=== PATIENT | female | born 1995 | race American Indian/Alaskan Native ===

== ENCOUNTER 2016-11-24 12:39 | Outpatient (CLI) | payer MEDICAID | END 2016-11-24 14:56 | disposition home or self-care (01) | LOC: TRG 12:39 | PROVIDERS: ATTEND Obstetrics & Gynecology | DX: O48.0 Post-term pregnancy (principal); Z3A.41 41 weeks gestation of pregnancy | CPT/HCPCS: 59025 ==

== ENCOUNTER 2016-11-24 21:01 | Inpatient (IN) | payer MEDICAID ==
[2016-11-25] MEDS ORDERED: ZOFRAN ONE ×2 (00:34→17:36)
[2016-11-25] MEDS ORDERED: STADOL ONE (00:35)
[2016-11-25] MEDS ORDERED: SUBLIMAZE ONE (00:59)
[2016-11-25] MEDS: LACTATED RINGERS 1,000 ML IV SCH ×5 (01:00→11:34)
[2016-11-25] MEDS: SUBLIMAZE IV PRN ×3 (01:00→05:44)
--- NOTE | 2016-11-25 01:08 | History and Physical Report ---
History of Present Illness Date of examination: 11/24/16 Date of admission: 11/24/16 21:01 Chief complaint: I'm overdue History of present illness: Patient is a 21 year old who presents at 41 weeks gestation. Patient started care in the 1st trimester with MyOB,but transferred to [facility] at 32 weeks because she desired a Trial of Labor. Past History Past Medical History: no pertinent history Past Surgical History: section (x2) Family/Genetic History: none Social history: - Obstetrical History Expected Date of Delivery: 11/17/16 Actual Gestation: 41 Week(s) 1 Day(s) : 3 Para: 2 Number of Living Children: 2 Medications and Allergies Allergies Allergy/AdvReac Type Severity Reaction Status Date / Time No Known Allergies Allergy Unverified 11/24/16 14:10 Review of Systems All systems: negative Genitourinary: pelvic pain, contractions - Vital Signs Vital signs: Vital Signs Pulse BP 96 H 130/58 11/24/16 21:23 11/24/16 21:23 Temp Pulse Resp BP Pulse Ox 84 130/58 97 11/25/16 01:02 11/24/16 23:28 11/25/16 01:02 - Physical Exam Breasts: Cardiovascular: Regular rate, Normal S1, Normal S2 Lungs: Positive: Clear to auscultation, Normal air movement Abdomen: Positive: normal appearance, soft, normal bowel sounds. Negative: distention, tenderness Vulva: both: normal Vagina: Positive: normal moisture. Negative: discharge Cervix: Negative: lesion, discharge Uterus: Positive: normal size, normal contour Adnexa: both: normal Anus/Rectum: Positive: normal perianal skin, heme negative. Negative: rectal mass, hemorrhoids Extremities: Deep Tendon Reflex Grade: Normal +2 - Obstetrical Cervical Dilatation: 0 Cervical Effacement Percentage: 80 station: 0 Results All other labs normal. Assessment and Plan IUP at 41 weeks here for induction and TOLA2C. Patient understands risks and benefits. Patient understands that pitocin will not be used. Will insert vásquez catheter into cevix to promote dilation. AROM after removal of catheter. Anticipate successful .
[2016-11-25] MEDS ORDERED: STADOL IV PRN (01:28)
[2016-11-25] MEDS ORDERED: ePHEDrine SULFATE IV PRN ×2 (01:28→08:13)
[2016-11-25] MEDS ORDERED: BRETHINE IVP PRN (01:28)
[2016-11-25] MEDS ORDERED: ZOFRAN IV PRN (01:28)
[2016-11-25] MEDS ORDERED: MINERAL OIL PO PRN (01:28)
[2016-11-25] MEDS ORDERED: BRETHINE SUB-Q PRN (01:28)
[2016-11-25] MEDS ORDERED: XYLOCAINE 2% INFILTRATI ONE (01:28)
[2016-11-25] MEDS ORDERED: PITOCin/NS 20 UNIT/1000ML DRIP 20 UNITS/1,000 ML BAG IV SCH ×3 (02:00→19:12)
[2016-11-25 02:59] LABS: Hematocrit 30.2 % (30.3-42.9); Hemoglobin 9.9 gm/dl (10.1-14.3); Mean Corpuscular HGB Conc 33 % (30-34); Mean Corpuscular Volume 74 fl (79-97); Platelet Count 246 K/mm3 (140-440); Red Blood Count 4.06 M/mm3 (3.65-5.03); Red Cell Distribution Width 16.7 % (13.2-15.2); White Blood Count 10.2 K/mm3 (4.5-11.0)
[2016-11-25 03:03] LABS: Mean Corpuscular Hemoglobin 24 pg (28-32)
[2016-11-25] MEDS ORDERED: fentaNYL-BUPIV 2 MCG/ML-0.125% 200 MCG/100 ML BAG EPIDURAL ONE (07:43)
[2016-11-25] MEDS ORDERED: NARCAN 2 MG/2 ML IV PRN (08:13)
--- NOTE | 2016-11-25 08:13 | Anesthesia Consultation ---
Anesthesia Consult and Med Hx Date of service: 11/25/16 - Airway Anesthetic Teeth Evaluation: Good ROM Head & Neck: Adequate Mental/Hyoid Distance: Adequate Intubation Access Assessment: Probably Good - Pre-Operative Health Status ASA Pre-Surgery Classification: ASA2, Emergency Proposed Anesthetic Plan: Epidural, Spinal - Pulmonary Hx Asthma: Yes COPD: No Hx Pneumonia: No - Cardiovascular System Hx Hypertension: No - Central Nervous System Hx Seizures: No Hx Psychiatric Problems: No - Endocrine Hx Renal Disease: No Hx End Stage Renal Disease: No Hx Hypothyroidism: No Hx Hyperthyroidism: No - Hematic Hx Anemia: No Hx Sickle Cell Disease: No - Other Systems Hx Alcohol Use: No
[2016-11-25] MEDS ORDERED: XYLOCAINE MPF 2% ONE ×5 (08:32→17:15)
[2016-11-25] MEDS ORDERED: ePHEDrine SULFATE ONE (08:40)
[2016-11-25] MEDS ORDERED: fentaNYL-BUPIV 2 MCG/ML-0.125% 200 MCG/100 ML BAG EPIDURAL SCH (09:00)
[2016-11-25] MEDS ORDERED: PITOCin/NS 30 UNIT/500ML IV ONE ×2 (11:00→12:00)
[2016-11-25] MEDS ORDERED: PITOCin/NS 30 UNIT/500ML 30,000 MILLIUNITS/500 ML BAG IV ONE (11:39)
[2016-11-25] MEDS ORDERED: PITOCin/NS 20 UNIT/1000ML DRIP IV ONE (12:00)
[2016-11-25] MEDS ORDERED: BICITRA PO SCH (15:47)
[2016-11-25] MEDS ORDERED: PEPCID IV SCH (15:47)
[2016-11-25] MEDS ORDERED: ANCEF/STERILE WATER 2 GM/20 ML 2 GM/20 ML SYRINGE IV NR (16:00)
[2016-11-25] MEDS ORDERED: LACTATED RINGERS 1,000 ML IV SCH (16:00)
--- NOTE | 2016-11-25 16:10 | Progress Note ---
Assessment and Plan IUP at 41 weeks who has been in labor since last night. Hoang bulb fell out spontaneously early this morning around 4:30 am. AROM was completed at 5am and patient was 4-5cm/70. Patient has been on pitocin and jeni regularly but has only progressed to 6cm in the past 12 hours. Had discussion with patient and her mom that liklihood of vaginal delivery is low and that it would be best option to proceed with rcs. Patient agreed. Consent signed and placed on chart. Subjective - Subjective Date of service: 11/25/16 Interval history: Patient is a 21 year old who presents at 41 weeks gestation. Patient started care in the 1st trimester with MyOB,but transferred to [facility] at 32 weeks because she desired a Trial of Labor. Patient reports: movement normal, contractions Objective - Vital Signs Vital Signs: Vital Signs - 12hr 11/25/16 11/25/16 11/25/16 03:52 03:55 03:57 Temperature Pulse Rate 75 96 H 82 Respiratory Rate Blood Pressure O2 Sat by Pulse 93 91 95 Oximetry 11/25/16 11/25/16 11/25/16 04:00 04:02 04:07 Temperature Pulse Rate 80 76 67 Respiratory Rate Blood Pressure O2 Sat by Pulse 91 94 94 Oximetry 11/25/16 11/25/16 11/25/16 04:12 04:17 04:42 Temperature Pulse Rate 76 77 60 Respiratory Rate Blood Pressure O2 Sat by Pulse 95 96 94 Oximetry 11/25/16 11/25/16 11/25/16 04:47 04:52 04:54 Temperature Pulse Rate 67 71 70 Respiratory Rate Blood Pressure O2 Sat by Pulse 95 98 86 Oximetry 11/25/16 11/25/16 11/25/16 04:57 05:02 05:03 Temperature Pulse Rate 76 89 90 Respiratory Rate Blood Pressure 114/72 O2 Sat by Pulse 98 100 Oximetry 11/25/16 11/25/16 11/25/16 05:07 05:12 05:17 Temperature Pulse Rate 71 66 65 Respiratory Rate Blood Pressure O2 Sat by Pulse 96 96 98 Oximetry 11/25/16 11/25/16 11/25/16 05:22 05:27 05:32 Temperature Pulse Rate 78 86 86 Respiratory Rate Blood Pressure O2 Sat by Pulse 100 98 99 Oximetry 11/25/16 11/25/16 11/25/16 05:37 05:42 05:47 Temperature Pulse Rate 64 74 69 Respiratory Rate Blood Pressure O2 Sat by Pulse 97 99 96 Oximetry 11/25/16 11/25/16 11/25/16 05:52 05:57 06:00 Temperature Pulse Rate 74 74 67 Respiratory Rate Blood Pressure O2 Sat by Pulse 95 96 89 Oximetry 11/25/16 11/25/16 11/25/16 06:02 06:07 06:12 Temperature Pulse Rate 65 75 78 Respiratory Rate Blood Pressure O2 Sat by Pulse 95 98 96 Oximetry 11/25/16 11/25/16 11/25/16 06:14 06:17 06:22 Temperature Pulse Rate 64 74 69 Respiratory Rate Blood Pressure O2 Sat by Pulse 90 97 98 Oximetry 11/25/16 11/25/16 11/25/16 06:27 06:32 06:37 Temperature Pulse Rate 72 63 79 Respiratory Rate Blood Pressure O2 Sat by Pulse 96 96 95 Oximetry 11/25/16 11/25/16 11/25/16 06:40 06:42 06:47 Temperature Pulse Rate 60 71 73 Respiratory Rate Blood Pressure O2 Sat by Pulse 89 96 99 Oximetry 11/25/16 11/25/16 11/25/16 06:52 06:59 07:04 Temperature Pulse Rate 58 L 60 80 Respiratory Rate Blood Pressure O2 Sat by Pulse 98 96 97 Oximetry 11/25/16 11/25/16 11/25/16 07:16 07:17 07:22 Temperature Pulse Rate 67 78 Respiratory Rate Blood Pressure 115/58 O2 Sat by Pulse 93 97 Oximetry 11/25/16 11/25/16 11/25/16 07:27 07:32 07:37 Temperature Pulse Rate 77 84 82 Respiratory Rate Blood Pressure O2 Sat by Pulse 98 100 99 Oximetry 11/25/16 11/25/16 11/25/16 07:42 07:47 07:51 Temperature 98.6 F Pulse Rate 71 39 L 82 Respiratory 16 Rate Blood Pressure O2 Sat by Pulse 100 97 Oximetry 11/25/16 11/25/16 11/25/16 07:52 07:55 07:57 Temperature Pulse Rate 84 74 74 Respiratory Rate Blood Pressure 129/59 O2 Sat by Pulse 99 100 Oximetry 11/25/16 11/25/16 11/25/16 08:00 08:02 08:03 Temperature Pulse Rate 76 78 76 Respiratory Rate Blood Pressure 106/56 105/57 O2 Sat by Pulse 99 Oximetry 11/25/16 11/25/16 11/25/16 08:04 08:07 08:12 Temperature Pulse Rate 77 73 57 L Respiratory Rate Blood Pressure 102/60 116/58 O2 Sat by Pulse 97 98 Oximetry 11/25/16 11/25/16 11/25/16 08:16 08:17 08:18 Temperature Pulse Rate 63 68 74 Respiratory Rate Blood Pressure 117/74 O2 Sat by Pulse 97 81 L Oximetry 11/25/16 11/25/16 11/25/16 08:22 08:24 08:28 Temperature Pulse Rate 66 87 81 Respiratory Rate Blood Pressure 104/51 O2 Sat by Pulse 98 83 L 98 Oximetry 11/25/16 11/25/16 11/25/16 08:33 08:38 08:43 Temperature Pulse Rate 72 51 L 73 Respiratory Rate Blood Pressure 107/59 O2 Sat by Pulse 97 60 L 100 Oximetry 11/25/16 11/25/16 11/25/16 08:48 08:53 08:58 Temperature Pulse Rate 98 H 73 75 Respiratory Rate Blood Pressure 106/54 O2 Sat by Pulse 100 100 100 Oximetry 11/25/16 11/25/16 11/25/16 09:03 09:08 09:13 Temperature Pulse Rate 73 73 73 Respiratory Rate Blood Pressure 104/51 O2 Sat by Pulse 100 100 100 Oximetry 11/25/16 11/25/16 11/25/16 09:18 09:22 09:23 Temperature Pulse Rate 68 78 65 Respiratory Rate Blood Pressure 100/54 O2 Sat by Pulse 100 100 Oximetry 11/25/16 11/25/16 11/25/16 09:28 09:33 09:37 Temperature Pulse Rate 69 71 69 Respiratory Rate Blood Pressure 97/51 O2 Sat by Pulse 100 100 Oximetry 11/25/16 11/25/16 11/25/16 09:38 09:43 09:48 Temperature Pulse Rate 70 69 83 Respiratory Rate Blood Pressure O2 Sat by Pulse 100 100 100 Oximetry 11/25/16 11/25/16 11/25/16 09:52 09:53 09:58 Temperature Pulse Rate 88 69 68 Respiratory Rate Blood Pressure 99/57 O2 Sat by Pulse 100 100 Oximetry 11/25/16 11/25/16 11/25/16 10:03 10:08 10:13 Temperature Pulse Rate 75 72 78 Respiratory Rate Blood Pressure 100/52 O2 Sat by Pulse 100 100 100 Oximetry 11/25/16 11/25/16 11/25/16 10:18 10:23 10:28 Temperature Pulse Rate 72 76 69 Respiratory Rate Blood Pressure 110/59 O2 Sat by Pulse 100 100 100 Oximetry 11/25/16 11/25/16 11/25/16 10:30 10:33 10:37 Temperature 97.0 F L Pulse Rate 69 68 Respiratory Rate Blood Pressure 93/51 O2 Sat by Pulse 100 Oximetry 11/25/16 11/25/16 11/25/16 10:38 10:43 10:48 Temperature Pulse Rate 66 101 H 81 Respiratory Rate Blood Pressure O2 Sat by Pulse 100 96 99 Oximetry 11/25/16 11/25/16 11/25/16 10:53 10:58 11:01 Temperature Pulse Rate 72 66 71 Respiratory Rate Blood Pressure O2 Sat by Pulse 70 L 99 68 L Oximetry 11/25/16 11/25/16 11/25/16 11:03 11:08 11:13 Temperature Pulse Rate 74 94 H 87 Respiratory Rate Blood Pressure O2 Sat by Pulse 100 100 100 Oximetry 11/25/16 11/25/16 11/25/16 11:18 11:20 11:23 Temperature Pulse Rate 86 69 96 H Respiratory Rate Blood Pressure 87/49 O2 Sat by Pulse 99 97 Oximetry 11/25/16 11/25/16 11/25/16 11:24 11:28 11:29 Temperature Pulse Rate 77 74 74 Respiratory Rate Blood Pressure 76/40 100/50 O2 Sat by Pulse 98 Oximetry 11/25/16 11/25/16 11/25/16 11:33 11:38 11:43 Temperature Pulse Rate 68 71 72 Respiratory Rate Blood Pressure 98/54 O2 Sat by Pulse 100 100 100 Oximetry 11/25/16 11/25/16 11/25/16 11:48 11:53 11:54 Temperature Pulse Rate 70 76 75 Respiratory Rate Blood Pressure 97/49 O2 Sat by Pulse 100 100 Oximetry 11/25/16 11/25/16 11/25/16 11:58 12:03 12:08 Temperature Pulse Rate 71 78 82 Respiratory Rate Blood Pressure O2 Sat by Pulse 100 100 100 Oximetry 11/25/16 11/25/16 11/25/16 12:09 12:13 12:18 Temperature Pulse Rate 83 75 72 Respiratory Rate Blood Pressure 94/55 O2 Sat by Pulse 100 100 Oximetry 11/25/16 11/25/16 11/25/16 12:22 12:23 12:28 Temperature Pulse Rate 67 69 67 Respiratory Rate Blood Pressure 82/44 O2 Sat by Pulse 100 100 Oximetry 11/25/16 11/25/16 11/25/16 12:33 12:38 12:42 Temperature Pulse Rate 73 69 66 Respiratory Rate Blood Pressure 94/52 O2 Sat by Pulse 100 100 50 L Oximetry 11/25/16 11/25/16 11/25/16 12:43 12:48 12:53 Temperature Pulse Rate 124 H 86 70 Respiratory Rate Blood Pressure 95/54 O2 Sat by Pulse 99 100 100 Oximetry 11/25/16 11/25/16 11/25/16 12:58 13:03 13:07 Temperature Pulse Rate 67 75 78 Respiratory Rate Blood Pressure 88/50 O2 Sat by Pulse 100 100 Oximetry 11/25/16 11/25/16 11/25/16 13:08 13:13 13:18 Temperature Pulse Rate 69 77 65 Respiratory Rate Blood Pressure O2 Sat by Pulse 100 100 100 Oximetry 11/25/16 11/25/16 11/25/16 13:23 13:25 13:28 Temperature Pulse Rate 86 76 76 Respiratory Rate Blood Pressure 92/42 O2 Sat by Pulse 98 100 Oximetry 11/25/16 11/25/16 11/25/16 13:33 13:37 13:38 Temperature Pulse Rate 75 87 83 Respiratory Rate Blood Pressure 103/45 O2 Sat by Pulse 100 100 Oximetry 11/25/16 11/25/16 11/25/16 13:43 13:48 13:53 Temperature Pulse Rate 81 67 76 Respiratory Rate Blood Pressure O2 Sat by Pulse 100 100 100 Oximetry 11/25/16 11/25/16 11/25/16 13:54 13:58 14:03 Temperature Pulse Rate 77 74 76 Respiratory Rate Blood Pressure 98/51 O2 Sat by Pulse 100 100 Oximetry 11/25/16 11/25/16 11/25/16 14:07 14:08 14:13 Temperature Pulse Rate 68 77 76 Respiratory Rate Blood Pressure 97/55 O2 Sat by Pulse 100 100 Oximetry 11/25/16 11/25/16 11/25/16 14:16 14:18 14:22 Temperature Pulse Rate 83 80 75 Respiratory Rate Blood Pressure 82/44 O2 Sat by Pulse 87 100 Oximetry 11/25/16 11/25/16 11/25/16 14:23 14:28 14:33 Temperature Pulse Rate 66 79 71 Respiratory Rate Blood Pressure O2 Sat by Pulse 100 100 100 Oximetry 11/25/16 11/25/16 11/25/16 14:37 14:38 14:43 Temperature Pulse Rate 73 76 76 Respiratory Rate Blood Pressure 82/46 O2 Sat by Pulse 100 100 Oximetry 11/25/16 11/25/16 11/25/16 14:48 14:53 14:58 Temperature Pulse Rate 73 76 75 Respiratory Rate Blood Pressure 93/45 O2 Sat by Pulse 100 100 100 Oximetry 11/25/16 11/25/16 11/25/16 15:03 15:08 15:09 Temperature Pulse Rate 75 64 112 H Respiratory Rate Blood Pressure 83/48 O2 Sat by Pulse 100 81 L Oximetry 11/25/16 11/25/16 11/25/16 15:13 15:18 15:22 Temperature Pulse Rate 94 H 73 85 Respiratory Rate Blood Pressure 111/54 O2 Sat by Pulse 100 100 Oximetry 11/25/16 11/25/16 11/25/16 15:23 15:28 15:30 Temperature Pulse Rate 77 92 H 80 Respiratory Rate Blood Pressure O2 Sat by Pulse 100 100 68 L Oximetry 11/25/16 11/25/16 11/25/16 15:33 15:38 15:43 Temperature Pulse Rate 75 75 91 H Respiratory Rate Blood Pressure 89/50 O2 Sat by Pulse 100 100 100 Oximetry 11/25/16 11/25/16 15:48 15:52 Temperature Pulse Rate 84 73 Respiratory Rate Blood Pressure 88/53 O2 Sat by Pulse 100 Oximetry - Exam Cardiovascular: Regular rate Lungs: Clear to auscultation, Normal air movement Abdomen: Present: normal appearance, soft. Absent: distention, tenderness Uterus: Present: normal FHR: auscultation normal Cervical Dilatation: 6 Cervical Effacement Percentage: 70 station: -2 Uterine Contraction Pattern: Regular Uterine Contraction Intensity: Moderate Extremities: normal Deep Tendon Reflex Grade: Normal +2 - Labs Labs: Abnormal Labs 11/24/16 22:00 Hgb 9.9 L Hct 30.2 L MCV 74 L MCH 24 L RDW 16.7 H Laboratory Results - last 24 hr 11/24/16 11/24/16 11/24/16 22:00 22:00 22:00 WBC 10.2 RBC 4.06 Hgb 9.9 L Hct 30.2 L MCV 74 L MCH 24 L MCHC 33 RDW 16.7 H Plt Count 246 RPR Nonreactive Blood Type A POSITIVE Antibody Screen TNR PARESH Antibody Screen Negative
[2016-11-25] MEDS: REGLAN IV SCH ×2 (16:15→16:19)
[2016-11-25] MEDS ORDERED: NACL 0.9% IR ONE (16:50)
[2016-11-25] MEDS ORDERED: WATER FOR IRRIG STERILE IR ONE (16:50)
[2016-11-25] MEDS ORDERED: DILAUDID ONE (17:23)
[2016-11-25] MEDS ORDERED: MORPHINE ONE ×2 (17:25)
[2016-11-25] MEDS ORDERED: NEO SYNEPHRINE/NS Syringe(OR USE) IV ONE (17:30)
--- NOTE | 2016-11-25 17:59 | Procedure Note ---
OB Delivery Note - Delivery Date of Delivery: 11/25/16 Surgeon: ARMANDO GORDON Estimated blood loss: other (700) - Section Preop diagnosis: repeat , arrest of dilation Postop diagnosis: same section procedure: repeat low transverse Disposition: PACU Complications: none Narrative: see op report - Infant A at 1 minute: 8 at 5 minutes: 9 Infant Gender: Female (6 pounds 15 ounces)
[2016-11-25] MEDS ORDERED: TORADOL IV PRN (18:09)
[2016-11-25] MEDS ORDERED: DILAUDID IV PRN (18:09)
--- NOTE | 2016-11-25 18:09 | Anesthesia Day of Surgery ---
Anesthesia Day of Surgery - Day of Surgery Patient Examined: Yes Patient H&P Reviewed: Yes Patient is NPO: Yes
[2016-11-25] MEDS ORDERED: NARCAN 0.4 MG/1 ML IV PRN (19:12)
[2016-11-25] MEDS ORDERED: MYLICON PO PRN (19:12)
[2016-11-25] MEDS ORDERED: MORPHINE IV PRN (19:12)
[2016-11-25] MEDS ORDERED: SODIUM CHLORIDE FLUSH SYRINGE 10 ML IV NR (19:12)
[2016-11-25] MEDS ORDERED: D5LR 1,000 ML IV SCH (19:12)
[2016-11-25] MEDS ORDERED: TUCKS PAD TP PRN (19:12)
[2016-11-25] MEDS ORDERED: LANSINOH TP PRN (19:12)
[2016-11-25] MEDS ORDERED: MILK OF MAGNESIA PO PRN (22:00)
[2016-11-25] MEDS: ANCEF/NS 1 GM/50 ML 1 GM/50 ML BAG IV SCH (23:39)
[2016-11-26] MEDS ORDERED: BENADRYL IV ONE (00:10)
[2016-11-26 06:15] LABS: Hematocrit 27.4 % (30.3-42.9); Hemoglobin 8.8 gm/dl (10.1-14.3)
[2016-11-26] MEDS: ANCEF/NS 1 GM/50 ML 1 GM/50 ML BAG IV SCH ×2 (08:18→15:32)
[2016-11-26] MEDS: PRENATAL VITAMIN PO SCH (08:22)
[2016-11-26] MEDS: PERCOCET 5/325 PO PRN ×3 (08:23→23:11)
[2016-11-26] MEDS: MOTRIN PO PRN ×2 (15:02→22:40)
--- NOTE | 2016-11-26 17:12 | Operative Report ---
Operative Report Operative Report: The operative report for patient Aston Medrano Date of service 11/25/2016 Preoperative diagnosis: Intrauterine at 41 weeks 2. Previous 2 3. Failed Postoperative diagnosis: Same Procedure: Repeat low transverse section Surgeon: Dr. Ana Hoyt EBL: 700 Urine output: 100 IV fluids: 1200 mL Findings: Viable female in the vertex occiput posterior position. Weight 6 lbs. 15 oz. 3576 g Apgars 9 and 9]. Otherwise normal pelvic anatomy Specimens: None Complications: None Procedure: The patient was admitted to the OR with IV running and in place. She was properly identified as herself. Her spinal had been placed in the room and she was already under the effects of anesthesia upon entry into the OR. She was placed in the dorsal supine position with a leftward tilt. A Hoang catheter was already in place. She was then prepped and draped in the normal sterile fashion. An Allis test was used to confirm adequate anesthesia. Once confirmed, the incision was made with the scalpel and carried to the underlying fascia using the scalpel and the Bovie. The fascia was incised in the midline and incision was extended bilaterally using the curved Washington scissors. The fascia was then dissected from the underlying rectus muscles in a series of sharp and blunt dissection using the Washington scissors. Muscles were in the in the midline sharply using Metzenbaum scissors and the peritoneum was entered into bluntly using the surgeon's fingers. A bladder blade was then placed into the incision to protect the bladder. Following this the bladder flap was created. Hysterotomy incision was then made in the scalpel. Upon uterine entry, the amniotic sac was ruptured for clear fluid. The infant was then delivered in the occiput [posterior] position. His mouth and nose were suctioned on the field. The cord was clamped and cut and he was handed to the waiting NICU personnel. The uterus was then exteriorized and cleared of all clots and debris. The hysterotomy incision was then closed in a running locked fashion using 0 Vicryl. The abdomen was then copiously irrigated with warm normal saline. Following this the uterus was replaced into the abdominal cavity. At this point the muscles were reapproximated in the midline using individual sutures of 0 Vicryl. Following this the fascia was closed in a running fashion using 0 Vicryl. Tissue was then copiously irrigated. Skin was closed with yi. The sponge lap needle and instrument counts were correct 2. The patient tolerated the procedure well. She was taken to recovery in stable condition.
--- NOTE | 2016-11-26 17:13 | Progress Note ---
Subjective - Subjective Date of service: 11/26/16 Interval history: Patient is a 21 year old who presents at 41 weeks gestation. Patient started care in the 1st trimester with MyOB,but transferred to [facility] at 32 weeks because she desired a Trial of Labor. Patient reports: appetite normal, voiding normally, pain well controlled, ambulating normally : doing well Objective - Vital Signs Latest vital signs: Vital Signs Temp Pulse Resp BP BP Pulse Ox 11/26/16 15:03 20 11/26/16 15:02 20 11/26/16 12:10 97.7 F 68 18 126/72 11/26/16 08:23 20 11/26/16 08:10 98.4 F 64 17 106/68 11/26/16 05:38 18 11/26/16 05:30 16 11/26/16 04:30 99.5 F 95 H 18 105/58 11/26/16 03:02 98.7 F 18 11/26/16 02:00 18 11/26/16 00:03 97.6 F 82 18 112/58 11/26/16 00:00 18 11/25/16 22:20 18 11/25/16 22:00 18 11/25/16 19:39 97.8 F 82 18 97/52 11/25/16 19:20 18 11/25/16 18:01 98.5 F 91 H 12 106/50 100 Intake and Output 11/26/16 11/26/16 11/26/16 06:59 14:59 22:59 Intake Total 1250 410 Output Total 3300 Balance -2049 410 Intake: IV 50 50 ANCEF/NS 1 GM/50 ML 1 gm 50 50 In 50 ml @ 100 mls/hr IV Q8H [facility] Rx#:[id number] Oral 360 Intake, Free Water 1200 Output: Urine 3300 Indwelling Catheter 3300 Other: Total, Intake Amount 240 Total, Output Amount 800 - Exam Breasts: Present: deferred Cardiovascular: Present: Regular rate, Normal S1, Normal S2 Lungs: Present: Clear to auscultation, Normal air movement Abdomen: Present: normal appearance, soft, normal bowel sounds Vulva: both: normal Uterus: Present: normal, firm Extremities: Present: normal - Labs Labs: Abnormal lab results 11/26/16 Range/Units 05:57 Hgb 8.8 L (10.1-14.3) gm/dl Hct 27.4 L (30.3-42.9) %
[2016-11-27] MEDS: PERCOCET 5/325 PO PRN (04:04)
[2016-11-27] MEDS: MOTRIN PO PRN ×3 (05:32→21:01)
[2016-11-27] MEDS ORDERED: BOOSTRIX IM ONE (06:00)
[2016-11-27] MEDS: PRENATAL VITAMIN PO SCH (11:30)
--- NOTE | 2016-11-27 16:04 | Progress Note ---
Subjective Date of service: 11/27/16 Interval history: 2nd POD after Patient is in the bed, comfortable. Pain is well controlled with pain meds. Ambulated well. No residual neurological deficit. No anesthesia complications Objective - Constitutional Vitals: Vital Signs - 12hr 11/27/16 11/27/16 05:32 08:42 Temperature 97.6 F Pulse Rate 64 Respiratory 18 19 Rate Blood Pressure 101/56 O2 Sat by Pulse 100 Oximetry - Labs CBC & Chem 7: 11/26/16 05:57
--- NOTE | 2016-11-27 23:19 | Progress Note ---
Assessment and Plan POd 2s/p rltcs. Doing well. Patient planning to go home on tomorrow. Subjective - Subjective Date of service: 11/27/16 Interval history: Patient is a 21 year old who presents at 41 weeks gestation. Patient started care in the 1st trimester with MyOB,but transferred to [facility] at 32 weeks because she desired a Trial of Labor. Patient reports: appetite normal, voiding normally, pain well controlled, ambulating normally [place]: doing well Objective - Vital Signs Latest vital signs: Vital Signs Temp Pulse Resp BP BP Pulse Ox 11/27/16 21:01 20 11/27/16 16:39 97.7 F 78 16 111/71 98 11/27/16 08:42 97.6 F 64 19 101/56 100 11/27/16 05:32 18 11/27/16 04:04 18 11/27/16 00:30 98.6 F 71 16 101/77 11/26/16 23:11 18 Intake and Output 11/27/16 11/27/16 11/28/16 14:59 22:59 06:59 Intake Total 360 Balance 360 Intake: Intake, Free Water 360 Other: # Voids Void 1 - Exam Breasts: Present: normal Cardiovascular: Present: Regular rate, Normal S1, Normal S2 Lungs: Present: Clear to auscultation, Normal air movement Abdomen: Present: normal appearance, soft, normal bowel sounds Uterus: Present: normal, firm Extremities: Present: normal Deep Tendon Reflex Grade: Normal +2
--- NOTE | 2016-11-27 23:21 | Discharge Summary ---
Providers - Providers Date of Admission: 11/24/16 21:01 Date of discharge: 11/28/16 Attending physician: ARMANDO GORDON Primary care physician: ARMANDO GORDON Hospitalization Reason for admission: induction of labor Delivery: Procedure: repeat low transverse Incision: normal, dry, intact Discharge diagnosis: IUP at term delivered baby: female Condition at discharge: Good Disposition: DC- TO HOME OR SELFCARE Plan - Discharge Medications Prescriptions: Docusate Sodium [Colace] 100 mg PO BID PRN #60 capsule PRN Reason: Constipation Ferrous Sulfate [Feosol 325 MG tab] 325 mg PO BID #60 tablet Ibuprofen [Motrin] 800 mg PO Q8HR PRN #50 tablet PRN Reason: Pain Oxycodone HCl/Acetaminophen [Percocet 7.5/325 mg] 1 each PO Q6HR PRN #50 tablet PRN Reason: Pain - Provider Discharge Summary Activity: routine, no sex for 6 weeks, no heavy lifting 4 weeks, no strenuous exercise Diet: routine Instructions: routine Additional instructions: [] Smoking cessation referral if applicable(refer to patient education folder for contact #) [] Refer to [facility]'s [facility] Booklet Call your doctor immediately for: * Fever > 100.5 * Heavy vaginal bleeding ( >1 pad per hour) * Severe persistent headache * Shortness of breath * Reddened, hot, painful area to leg or breast * Drainage or odor from incision. * Keep incision clean and dry at all times and follow doctor's instructions regarding bathing/showering - Follow up plan Follow up: ARMANDO GORDON MD [Primary Care Provider] - 7 Days Forms: [facility] Discharge Summary, Discharge Signature Page
[2016-11-28] MEDS: PERCOCET 5/325 PO PRN (00:59)
[2016-11-28] MEDS: MOTRIN PO PRN ×3 (06:02→18:15)
[2016-11-28] MEDS: PRENATAL VITAMIN PO SCH (11:30)
[2016-11-28 18:37] VITALS: BP 108/58
== END 2016-11-28 19:34 | disposition home or self-care (01) | DRG 766 ==
LOC: LD 21:01 → OB 11-25 19:09
PROVIDERS: ADMIT Obstetrics & Gynecology; ATTEND Obstetrics & Gynecology
PROC: 3E0234Z Introduction of Serum, Toxoid and Vaccine into Muscle, Percutaneous Approach (ICD-10-PCS; 2016-11-25)
PROC: 10D00Z1 Extraction of Products of Conception, Low, Open Approach (ICD-10-PCS; principal; 2016-11-26)
PROC: 10907ZC Drainage of Amniotic Fluid, Therapeutic from Products of Conception, Via Natural or Artificial Opening (ICD-10-PCS; 2016-11-26)
DX: O34.211 Maternal care for low transverse scar from previous cesarean delivery (principal); O99.52 Diseases of the respiratory system complicating childbirth; J45.909 Unspecified asthma, uncomplicated; Z3A.41 41 weeks gestation of pregnancy; Z37.0 Single live birth; Z23 Encounter for immunization; O62.1 Secondary uterine inertia; O48.0 Post-term pregnancy
CPT/HCPCS: 36415; 85014; 85018; 85027; 86592; 86850; 86900; 86901; 90471; 90715; 99211; A6250; G0463; J0595; J0690; J1170; J1200; J1885; J2270; J2370; J2405; J2590; J2765; J3010; J7120; J7121

== ENCOUNTER 2018-11-16 11:54 | Inpatient (IN) | payer MEDICAID ==
[2018-11-16] MEDS ORDERED: METOCLOPRAMIDE 10 MG/2 ML INJ IV ONE (12:37)
[2018-11-16] MEDS ORDERED: BICITRA ORAL LIQD 30ML PO ONE (12:37)
[2018-11-16] MEDS ORDERED: FAMOTIDINE 20 MG/2 ML INJ IV ONE ×2 (12:37→15:07)
[2018-11-16] MEDS ORDERED: ceFAZolin/Water 2 GM/20 ML 2 GM/20 ML SYRINGE IV NR (13:00)
[2018-11-16] MEDS ORDERED: OXYTOCIN 20 UNIT/1000ML DRIP 20 UNITS/1,000 ML BAG IV SCH ×2 (13:00→18:00)
[2018-11-16] MEDS ORDERED: LACTATED RINGERS 1,000 ML IV SCH (13:00)
[2018-11-16] MEDS ORDERED: D5W/LACTATED RINGERS 1,000 ML IV SCH ×2 (13:00→23:00)
[2018-11-16 13:39] LABS: Basophils # (Auto) 0.1 K/mm3 (0.0-0.1); Basophils % (Auto) 0.7 % (0.0-1.8); Eosinophils # (Auto) 0.2 K/mm3 (0.0-0.4); Eosinophils % (Auto) 2.4 % (0.0-4.3); Hemoglobin 11.8 gm/dl (10.1-14.3); Lymphocytes # (Auto) 1.4 K/mm3 (1.2-5.4); Lymphocytes % (Auto) 15.5 % (13.4-35.0); Mean Corpuscular HGB Conc 33 % (30-34); Mean Corpuscular Volume 82 fl (79-97); Monocytes # (Auto) 0.4 K/mm3 (0.0-0.8); Monocytes % (Auto) 4.8 % (0.0-7.3); Platelet Count 210 K/mm3 (140-440); Red Blood Count 4.41 M/mm3 (3.65-5.03); Red Cell Distribution Width 15.8 % (13.2-15.2)
[2018-11-16] MEDS ORDERED: BICITRA ORAL LIQD 30ML ONE (15:07)
[2018-11-16] MEDS ORDERED: METOCLOPRAMIDE 10 MG/2 ML INJ ONE (15:07)
[2018-11-16] MEDS ORDERED: ONDANSETRON 4 MG/2 ML INJ IV ONE (15:12)
[2018-11-16] MEDS ORDERED: diphenhydrAMINE 50 MG/ML VIAL IV PRN (15:21)
[2018-11-16] MEDS ORDERED: ONDANSETRON 4 MG/2 ML INJ IV PRN (15:21)
[2018-11-16] MEDS ORDERED: HYDROmorphone 1 MG/1 ML INJ IV PRN ×2 (15:21)
--- NOTE | 2018-11-16 15:25 | Anesthesia Consultation ---
Anesthesia Consult and Med Hx Date of service: 11/16/18 - Airway Anesthetic Teeth Evaluation: Good ROM Head & Neck: Adequate Mental/Hyoid Distance: Adequate Mallampati Class: Class II Intubation Access Assessment: Probably Good - Pulmonary Exam CTA: Yes - Cardiac Exam Cardiac Exam: RRR - Pre-Operative Health Status ASA Pre-Surgery Classification: ASA2 Proposed Anesthetic Plan: Spinal - Pulmonary Hx Smoking: No Hx Asthma: Yes (Albuterol PRN, last attack 1 year ago) Hx Respiratory Symptoms: No SOB: No COPD: No Home Oxygen Therapy: No Hx Pneumonia: No Hx Sleep Apnea: No - Cardiovascular System Hx Hypertension: No Hx Coronary Artery Disease: No Hx Heart Attack/AMI: No Hx Angina: No Hx Percutaneous Transluminal Coronary Angioplasty (PTCA): No Hx Cardia Arrhythmia: No Hx Pacemaker: No Hx Internal Defibrillator: No Hx Valvular Heart Disease: No Hx Heart Murmur: No Hx Peripheral Vascular Disease: No - Central Nervous System Hx Neuromuscular Disorder: No Hx Seizures: No CVA: No Hx Back Pain: No Hx Psychiatric Problems: No - Gastrointestinal Hx Ulcer: No Hx Gastroesophageal Reflux Disease: No - Endocrine Hx Renal Disease: No Hx End Stage Renal Disease: No Hx Cirrhosis: No Hx Liver Disease: No Hx Insulin Dependent Diabetes: No Hx Non-Insulin Dependent Diabetes: No Hx Thyroid Disease: No Hx Hypothyroidism: No Hx Hyperthyroidism: No - Hematic Hx Anemia: Yes (Prescribed iron) Hx Sickle Cell Disease: No - Other Systems Hx Alcohol Use: No Hx Substance Use: No Hx Cancer: No Hx Obesity: No
--- NOTE | 2018-11-16 15:28 | Anesthesia Day of Surgery ---
Anesthesia Day of Surgery - Day of Surgery Patient Examined: Yes Patient H&P Reviewed: Yes Patient is NPO: Yes (last meal 12 noon. surgery scheduled for 8pm) Beta Blockers: No Cardiac Clearance: No Pulmonary Clearance: No [place]'s Test: N/A
[2018-11-16 17:08] LABS: Hepatitis C Virus Antibody Non-Reactive (NonReactive)
--- NOTE | 2018-11-16 17:16 | History and Physical Report ---
History of Present Illness Date of examination: 11/16/18 Date of admission: 11/16/18 15:26 Chief complaint: contractions History of present illness: 23y/o @ 39+4 weeks presents with irregular uterine contractions. She denies leakage of fluid or vaginal bleeding. course is complicated by insufficient care. The patient has had 3 prior deliveries. records are unavailable. Past History Past Medical History: asthma, other ( depression) Past Surgical History: section Social history: - Obstetrical History Expected Date of Delivery: 11/19/18 Actual Gestation: 39 Week(s) 4 Day(s) : 4 Para: 3 Hx # Term Pregnancies: 3 Number of Pregnancies: 0 Spontaneous Abortions: 0 Induced : 0 Number of Living Children: 3 Medications and Allergies Allergies Allergy/AdvReac Type Severity Reaction Status Date / Time No Known Allergies Allergy Verified 11/16/18 11:59 Home Medications Medication Instructions Recorded Confirmed Last Taken Type Docusate Sodium [Colace] 100 mg PO BID PRN #60 capsule 11/26/16 Unknown Rx Ferrous Sulfate [Feosol 325 MG tab] 325 mg PO BID #60 tablet 11/26/16 Unknown Rx Ibuprofen [Motrin] 800 mg PO Q8HR PRN #50 tablet 11/26/16 Unknown Rx Oxycodone HCl/Acetaminophen 1 each PO Q6HR PRN #50 tablet 11/26/16 Unknown Rx [Percocet 7.5/325 mg] Active Meds: Active Medications Diphenhydramine HCl (Benadryl) 12.5 mg IV Q2H PRN PRN Reason: Itching Hydromorphone HCl (Dilaudid) 0.5 mg IV Q5M PRN PRN Reason: Breakthrough Pain Stop: 11/16/18 23:59 Hydromorphone HCl (Dilaudid) 0.5 mg IV Q4H PRN PRN Reason: breakthrough pain > 7/10 Oxytocin/Sodium Chloride (Pitocin/Ns 20 Unit/1000ml Drip) 20 units in 1,000 mls @ 0 mls/hr IV TITR SAVANAH Lactated Ringer's (Lactated Ringers) 1,000 mls @ 2,250 mls/hr IV PREOP SAVANAH Stop: 11/17/18 13:27 Last Admin: 11/16/18 16:24 Dose: 2,250 mls/hr Documented by: Cefazolin Sodium (Ancef/Sterile Water 2 Gm/20 Ml) 2 gm in 20 mls @ 80 mls/hr IV PREOP NR; Protocol Stop: 11/16/18 23:59 Dextrose/Lactated Ringer's (D5lr) 1,000 mls @ 125 mls/hr IV DIRECT SAVANAH Last Admin: 11/16/18 13:11 Dose: 999 mls/hr Documented by: Ondansetron HCl (Zofran) 4 mg IV Q8H PRN PRN Reason: Nausea And Vomiting Sodium Chloride (Sodium Chloride Flush Syringe 10 Ml) 10 ml IV PRN NR Stop: 11/17/18 15:59 Review of Systems All systems: negative Genitourinary: contractions, no vaginal bleeding, no leakage of fluid - Vital Signs Vital signs: Vital Signs Pulse BP 72 114/60 11/16/18 12:30 11/16/18 12:30 Temp Pulse Resp BP Pulse Ox 97.8 F 72 20 114/60 11/16/18 12:31 11/16/18 12:30 11/16/18 12:31 11/16/18 12:30 - Physical Exam Breasts: Positive: deferred Cardiovascular: Regular rate Lungs: Positive: Clear to auscultation Abdomen: Positive: normal appearance Results Result Diagrams: 11/16/18 13:10 Abnormal lab results 11/16/18 Range/Units 13:10 MCH 27 L (28-32) pg RDW 15.8 H (13.2-15.2) % Seg Neutrophils % 76.6 H (40.0-70.0) % All other labs normal. Assessment and Plan - Patient Problems (1) Previous delivery affecting Current Visit: Yes Status: Acute Plan to address problem: will proceed with a repeat delivery (2) Insufficient care Current Visit: Yes Status: Acute (3) Prolonged latent phase of labor Current Visit: Yes Status: Acute
[2018-11-16] MEDS ORDERED: LANOLIN/ZINC/DIMETHICONE (LANSINOH) 7 GM TP PRN (17:20)
[2018-11-16] MEDS ORDERED: MORPHINE 4 MG/1 ML INJ IV PRN (17:20)
[2018-11-16] MEDS ORDERED: ceFAZolin/STERILE WATER 2 GM/20 ML SYRINGE IV ONE (17:20)
[2018-11-16] MEDS ORDERED: NALOXONE 0.4 MG/1 ML INJ IV PRN (17:20)
[2018-11-16] MEDS ORDERED: ACETAMINOPHEN 325 MG TAB PO PRN (17:20)
[2018-11-16] MEDS ORDERED: WITCH HAZEL/ GLYCERIN PAD TP PRN (17:20)
[2018-11-16] MEDS ORDERED: IBUPROFEN 800 MG TAB PO PRN (17:20)
--- NOTE | 2018-11-16 17:23 | Procedure Note ---
OB Delivery Note - Delivery Date of Delivery: 11/16/18 Surgeon: ERIKA HOUSTON Estimated blood loss: 500cc - Section Preop diagnosis: repeat Postop diagnosis: same section procedure: section, repeat low transverse Disposition: PACU Complications: none - A at 1 minute: 8 at 5 minutes: 9 Gender: Male (weight 7lbs 6oz)
[2018-11-16] MEDS ORDERED: ePHEDrine SULFATE 50 MG/1 ML INJ ONE ×2 (17:26→18:10)
[2018-11-16] MEDS ORDERED: WATER FOR IRRIG STERILE 1,500 ML BOTTLE IR ONE (17:34)
[2018-11-16] MEDS ORDERED: SODIUM CHLORIDE 0.9% IRR 1,500 ML BOTTLE IR ONE (17:34)
[2018-11-16] MEDS ORDERED: ONDANSETRON 4 MG/2 ML INJ ONE (17:58)
--- NOTE | 2018-11-16 18:18 | Operative Report ---
Operative Report Operative Report: Date of surgery: 11/16/2018 Preoperative diagnosis: at 39+3 weeks; previous delivery; insufficient care; latent in labor Postoperative diagnosis: Same as above Procedure: Repeat low-transverse delivery and lysis of adhesions Surgeon: Macie Keating M.D. Anesthesia: Regional Estimated blood loss: 500 mL Urine output: 200 mL IV fluids 1400 mL Findings: Liveborn male with Apgars of 8 and 9 weight 7 lbs. 6 oz. Indications: 23-year-old at 39+3 weeks who presents with a history of prior delivery 3. The patient states have a regular uterine contractions. Procedure: The patient was taken to the operating room and given regional anesthesia without complication. She was prepped and draped in a normal sterile fashion. A Pfannenstiel skin incision was made down to layer the fascia which was nicked in the midline extended laterally with the Bovie cautery. The superior aspect of the rectus fascia was grasped with Tremaine clamps x2 and the rectus muscles off sharply. This was done in inferior fashion as well. The rectus muscle midline and peritoneum entered bluntly. Adhesions were noted at the lower uterine segment and fundus of the uterus to the rectus muscle. Lysis of adhesions had to be performed in order to visualize the lower uterine segment of the uterus. An Antony retractor was then inserted. A bladder blade was placed. The vesicouterine peritoneum was then entered sharply with Metzenbaum scissors. A bladder flap was created digitally. A low transverse uterine incision was then made and extended digitally. There was clear fluid upon entry into the uterine cavity. The head was delivered through the incision with fundal pressure. The cord was clamped and cut x2 and infant was passed off to pediatrics. The placenta was then manually extracted. The uterus was then exteriorized and cleared of clots and debris. The uterine incision was then closed in a running locked fashion with 0 Vicryl additional imbricating stitch was applied for 2 layer closure. The posterior cul-de-sac was then copiously irrigated. The uterus was replaced back into the abdomen and pelvis were the gutters were then irrigated. The Antony retractor was then removed. The peritoneum was then reapproximated with 3-0 Vicryl incorporating the rectus muscle. The fascia was then closed with 0 Vicryl in a running fashion. The skin was then reapproximated with 3-0 Monocryl on a Ang needle subcuticular fashion. Steri-Strips to place across the incision and a Crede procedures performed at the end of the surgery. A pressure dressing was applied to the incision. The surgery productive of a liveborn male infant with Apgars of 8 and 9 weight 7 lbs. 6 oz. The patient was taken to the recovery room in stable condition. All sponge laps and needle counts correct x2.
--- NOTE | 2018-11-16 18:27 | Post Anesthesia Evaluation ---
- Post Anesthesia Evaluation Patient Participated: Yes Airway Patent: Yes Stable Respiratory Function: Yes Nausea/Vomiting: No Temp > 96.8F: Yes Pain Manageable: Yes Adequeate Hydration: Yes Anesthesia Complications: No Block Receding Appropriately: Yes Patient on Ventilator: No
[2018-11-16] MEDS: KETOROLAC 30 MG/1 ML INJ IV PRN (20:57)
[2018-11-16] MEDS: oxyCODONE /ACETAMINOPHEN 5-325MG TAB PO SCH (22:01)
[2018-11-17] MEDS: oxyCODONE /ACETAMINOPHEN 5-325MG TAB PO SCH ×7 (02:02→22:57)
[2018-11-17] MEDS: KETOROLAC 30 MG/1 ML INJ IV PRN (04:24)
[2018-11-17 05:34] LABS: Hematocrit 33.2 % (30.3-42.9); Hemoglobin 10.9 gm/dl (10.1-14.3)
--- NOTE | 2018-11-17 14:19 | Progress Note ---
Assessment and Plan - Patient Problems (1) Previous delivery affecting Current Visit: Yes Status: Acute Plan to address problem: improve pain management routine post op care (2) Insufficient care Current Visit: Yes Status: Acute (3) Prolonged latent phase of labor Current Visit: Yes Status: Acute Subjective - Subjective Date of service: 11/17/18 Interval history: Patient reports having pain. She has voided and is tolerating a clear diet Patient reports: appetite normal, voiding normally, pain poorly controlled Objective - Vital Signs Latest vital signs: Vital Signs Temp Pulse Resp BP BP Pulse Ox 11/17/18 12:00 98 F 57 L 18 89/46 11/17/18 08:00 98.9 F 64 18 96/54 11/17/18 06:42 18 11/17/18 04:54 18 11/17/18 04:24 18 11/17/18 03:02 18 11/17/18 02:02 18 11/17/18 00:00 98.4 F 70 18 118/61 11/16/18 23:01 18 11/16/18 22:01 18 11/16/18 21:27 18 11/16/18 20:57 18 11/16/18 19:56 98.6 F 64 18 109/50 100 11/16/18 19:25 97.8 F 66 12 115/59 100 11/16/18 19:05 62 20 118/58 98 11/16/18 18:50 61 16 119/61 99 11/16/18 18:35 62 18 120/61 98 11/16/18 18:30 61 16 121/62 99 11/16/18 18:25 63 14 119/63 98 11/16/18 18:20 98.0 F 62 14 119/56 97 Intake and Output 11/16/18 11/17/18 11/17/18 22:59 06:59 14:59 Intake Total 2049 480 360 Output Total 550 500 600 Balance 1500 -20 -240 Intake: IV 2050 Oral 480 360 Output: Urine 550 500 600 Indwelling Catheter 500 Void 600 Other: Total, Intake Amount 480 120 Total, Output Amount 500 600 Estimated Blood Loss 500 - Exam Abdomen: Present: normal appearance Incision: Present: dressed
[2018-11-18] MEDS: oxyCODONE /ACETAMINOPHEN 5-325MG TAB PO SCH ×5 (03:21→23:51)
--- NOTE | 2018-11-18 17:17 | Progress Note ---
Assessment and Plan pod 2 S/P LTCS. DOING WELL. PLAN FOR DISCHARGE ON TOMORROW Subjective - Subjective Date of service: 11/18/18 Interval history: pod 2 S/P LTCS Patient reports: appetite normal, voiding normally, ambulating normally [place]: doing well Objective - Vital Signs Latest vital signs: Vital Signs Temp Pulse Resp BP Pulse Ox 11/18/18 07:54 97.5 F L 61 20 103/57 97 11/18/18 00:56 97.7 F 74 20 104/48 94 Intake and Output 11/18/18 11/18/18 11/18/18 06:59 14:59 22:59 Intake Total 240 480 Balance 240 480 Intake: Oral 240 480 Other: Total, Intake Amount 240 240 # Voids Void 1 1 - Exam Breasts: Present: deferred Cardiovascular: Present: Regular rate, Normal S1, Normal S2 Lungs: Present: Clear to auscultation, Normal air movement Abdomen: Present: normal appearance, soft, normal bowel sounds Uterus: Present: normal, firm Extremities: Present: normal Incision: Present: normal, dry, intact
--- NOTE | 2018-11-18 17:19 | Discharge Summary ---
Providers - Providers Date of Admission: 11/16/18 15:26 Date of discharge: 11/19/18 Attending physician: ARMANDO GORDON Primary care physician: ARMANDO GORDON Hospitalization Reason for admission: active labor, section Delivery: Procedure: repeat low transverse Incision: normal, dry, intact Other procedures: none Discharge diagnosis: IUP at term delivered baby: male Condition at discharge: Good Disposition: DC-01 TO HOME OR SELFCARE Plan - Discharge Medications Prescriptions: Docusate Sodium [Colace] 100 mg PO BID PRN #60 capsule PRN Reason: Constipation Ibuprofen [Motrin] 800 mg PO Q8HR PRN #40 tablet PRN Reason: Pain, Moderate (4-6) oxyCODONE /ACETAMINOPHEN [Percocet 5/325] 2 tab PO Q6HR PRN #40 tablet PRN Reason: Pain - Provider Discharge Summary Activity: routine, no sex for 6 weeks, no heavy lifting 4 weeks, no strenuous exercise Diet: routine Instructions: routine Additional instructions: [] Smoking cessation referral if applicable(refer to patient education folder for contact #) [] Refer to [facility] Booklet Call your doctor immediately for: * Fever > 100.5 * Heavy vaginal bleeding ( >1 pad per hour) * Severe persistent headache * Shortness of breath * Reddened, hot, painful area to leg or breast * Drainage or odor from incision. * Keep incision clean and dry at all times and follow doctor's instructions regarding bathing/showering - Follow up plan Follow up: ARMANDO GORDON MD [Primary Care Provider] - 14 Days
[2018-11-19] MEDS: oxyCODONE /ACETAMINOPHEN 5-325MG TAB PO SCH ×2 (02:00→06:00)
[2018-11-19 16:32] VITALS: BP 111/67
== END 2018-11-19 15:50 | disposition home or self-care (01) | DRG 766 ==
LOC: TRG 11:54 → OBSVTOIN 15:26 → INTOOBSV 15:26 → APU 15:26 → TRG 15:26 → OB 20:10
PROVIDERS: ADMIT Obstetrics & Gynecology; ATTEND Obstetrics & Gynecology
PROC: 10D00Z1 Extraction of Products of Conception, Low, Open Approach (ICD-10-PCS; principal; 2018-11-16)
DX: O34.211 Maternal care for low transverse scar from previous cesarean delivery (principal); Z3A.39 39 weeks gestation of pregnancy; Z37.0 Single live birth; J45.909 Unspecified asthma, uncomplicated; O63.1 Prolonged second stage (of labor); K66.0 Peritoneal adhesions (postprocedural) (postinfection); O99.52 Diseases of the respiratory system complicating childbirth; O99.62 Diseases of the digestive system complicating childbirth; O99.02 Anemia complicating childbirth
CPT/HCPCS: 36415; 59025; 76815; 76819; 85014; 85018; 85025; 86592; 86706; 86762; 86803; 86850; 86900; 86901; 87806; 96360; 96361; 96372; G0378; J0690; J1885; J2270; J2405; J2590; J2765; J7120; J7121; Q0169